=== PATIENT | female | born 1990 | race Caucasian/White ===

== ENCOUNTER 2016-09-04 19:11 | Emergency (ER) | payer MEDICAID, OTHER ==
[~2016-09-04] VITALS: Ht 170.2 cm; Wt 106.7 kg
[~2016-09-04 19:11] MED LIST: AC500T PO; CIPR-225 PO; CLC500CT PO; CLIN300C11 PO; DOXY-13 PO; DOXY100T2 PO; ERYT500T8 PO; ETON1VAG; FRS325T PO; HYDR-1231 PO; HYDR-3583 PO; IBP600T1 PO; IBP800T PO; NAPR-243 PO; NITR-65 PO; NITR100C3 PO; NUVARING; ONDA-42 SL; ONDAN4ODT PO; OXYC-12 PO; PARO10TA81 PO; PHEN37.53; PREN-115 PO; PREN1TAB39 PO; TRAM50TA2 PO
[2016-09-04] MEDS ORDERED: DESV50TA PO (19:49)
[2016-09-04] MEDS ORDERED: ONDANSETRON 4 MG/2 ML (SDV) Z0FRAN IVP ONE (20:30)
[2016-09-04] MEDS ORDERED: NS 100 ML (IVPB) BAG IV ONE (21:00)
[2016-09-04] MEDS ORDERED: IOHEXOL 350 MG/ML 100 ML (OMNIPAQUE 350) VIAL IV ONE (21:00)
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
[2016-09-04] MEDS ORDERED: TRAM50TA2 PO (22:18)
[2016-09-04 22:21] VITALS: BP 119/71
== END 2016-09-04 22:21 | disposition home or self-care (01) ==
LOC: EDUNIT# 19:11 → ER 19:13
DX: S93.402A Sprain of unspecified ligament of left ankle, initial encounter (principal); F17.210 Nicotine dependence, cigarettes, uncomplicated; V43.52XA Car driver injured in collision with other type car in traffic accident, initial encounter; Y92.414 Local residential or business street as the place of occurrence of the external cause; Y99.8 Other external cause status
CPT/HCPCS: 71260; 73610; 74177; 84703; 96374

== ENCOUNTER 2017-02-11 18:18 | Emergency (ER) | payer SELFPAY ==
[~2017-02-11] VITALS: Ht 167.6 cm; Wt 90.7 kg
[~2017-02-11 18:18] MED LIST changes: +DESV50TA PO
--- NOTE | 2017-02-11 19:12 | ED Lower Extremity ---
General Chief Complaint: Lower Extremity Stated Complaint: PT FELL X1 WEEK AND INJ KNEES Nursing Triage Note: c/o abrasions to both knees notes. Abrasions appears [place] with mild surround erythema. No streaking noted. Nursing Sepsis Screen: No Definite Risk History of Present Illness Time seen by provider: 18:55 Initial Comments Patient reports falling on a sidewalk, she tripped and landed on both knees with abrasions present. She has been cleaning it with peroxide and applying triple antibiotic ointment she has a history of MRSA. She denies any head injury or loss of consciousness at the time of fall in addition she reports she is approximately 4 days late on her menstrual cycle and had one positive test at home followed by 2 negative tests. Onset: last week Pain/Injury Location: bilateral knee Method of Injury: fell Modifying Factors: Improves With Pain Medication (Aleve one tablet twice a day. ), Improves With Rest Allergies and Home Medications Allergies Coded Allergies: amoxicillin (Unverified Allergy, Unknown, 09/04/16) cefaclor (Verified Allergy, Unknown, 02/17/16) codeine (Unverified Allergy, Unknown, 09/04/16) hydrocodone (Verified Allergy, Unknown, 02/17/16) penicillin G (Verified Allergy, Unknown, 01/10/07) Home Medications Desvenlafaxine Succinate 50 Mg Tab.er.24h, 50 MG PO DAILY, (Reported) Mupirocin Calcium 15 Gm Cream..g., 15 GM TP TID for 7 Days, #1 Ref 0 Applied to abrasions on both knees 3 times a day for 7 days. Prescribed by: ALMA SAINI on 02/11/173 Tramadol HCl 50 Mg Tablet, 50 MG PO TID, #12 Ref 0 Prescribed by: ALMA SAINI on 09/04/168 Constitutional: no symptoms reported, see HPI : No (negative urine hCG) Musculoskeletal: see HPI, joint pain (bilateral knees) All Other Systems Reviewed Negative Unless Noted: Yes Past Ucodnab-Wfwmnv-Mnovbw Hx Patient Social History Alcohol Use: Denies Use Recreational Drug Use: No Smoking Status: Current Everyday Smoker Type Used: Cigarettes Former Smoker/When Quit: Jan 24, 2013 Recent Foreign Travel: No Contact w/Someone Who Travel: No Recent Infectious Disease Expo: No Recent Hopitalizations: No Immunizations Up To Date Tetanus Booster (TDap): Unknown Date of Influenza Vaccine: Oct 21, 2011 Seasonal Allergies Seasonal Allergies: Yes Surgeries HX Surgeries: Yes Surgeries: Adenoidectomy, Tonsillectomy Respiratory Hx Respiratory Disorders: Yes (CHILDHOOD ASTHMA) Respiratory Disorders: Asthma Cardiovascular Hx Cardiac Disorders: No Neurological Hx Neurological Disorders: No Reproductive System Hx Reproductive Disorders: Yes Female Reproductive Disorders: Ovarian Cyst Genitourinary Hx Genitourinary Disorders: No Gastrointestinal Hx Gastrointestinal Disorders: No Musculoskeletal Hx Musculoskeletal Disorders: No Endocrine Hx Endocrine Disorders: No HEENT HX ENT Disorders: No Cancer Hx Cancer: No Psychosocial Hx Psychiatric Problems: Yes Behavioral Health Disorders: PTSD, Depression Integumentary HX Skin/Integumentary Disorder: No Blood Transfusions Hx Blood Disorders: No Adverse Reaction to a Blood Tr: No Reviewed Nursing Assessment Reviewed/Agree w Nursing PMH: Yes Family Medical History Significant Family History: Diabetes Physical Exam Vital Signs Vital Sign - Last 12Hours 02/11/17 02/11/17 18:41 19:15 Temp 97.5 Pulse 70 Resp 16 B/P (MAP) 116/79 Pulse Ox 98 Capillary Refill : Less Than 3 Seconds General Appearance: WD/WN, no apparent distress Neck: non-tender, full range of motion, supple, normal inspection Cardiovascular: normal peripheral pulses, regular rate, rhythm, no murmur Respiratory: chest non-tender, lungs clear, normal breath sounds Gastrointestinal: normal bowel sounds, non tender, soft Knees: bilateral knee normal range of motion, bilateral knee soft tissue tenderness, bilateral knee other (superficial abrasions with good granulation, no warmth, trace erythema. No effusion or induration. No active drainage.) Neurologic/Psychiatric: no motor/sensory deficits, alert, normal mood/affect, oriented x 3 Skin: warm/dry, other (abrasions bilateral knees, without signs of infection.) Progress/Results/Core Measures Results/Orders My Orders Orders - ALMA SAINI Urine Bedside (02/11/17 18:49) Urine Bedside (02/11/17 19:06) Vital Signs/I&O Vital Sign - Last 12Hours 02/11/17 02/11/17 18:41 19:15 Temp 97.5 97.5 Pulse 70 70 Resp 16 B/P (MAP) 116/79 Pulse Ox 98 98 Blood Pressure Mean: 91 Progress Note : Time: 19:05 Progress Note Bilateral knees cleaned with peroxide, triple antibiotic ointment and Band-Aid applied. Departure Impression Impression: Primary Impression: Abrasion of knee, bilateral Disposition: 01 HOME, SELF-CARE Condition: Stable Departure-Patient Inst. Decision time for Depature: 19:05 Referrals: NO,LOCAL PHYSICIAN (PCP/Family) Primary Care Physician Patient Instructions: Skin Abrasions (DC) Add. Discharge Instructions: Ice to knees 20 minutes every 2-3 hours. Continue to clean the abrasions with peroxide 3 times a day, and apply prescription antibiotic ointment. Return to emergency department or go to the [facility] for increased knee pain, redness, warmth, discolored drainage, temperature greater than 100 or new problems All discharge instructions reviewed with patient and/or family. Voiced understanding. Scripts Mupirocin Calcium (Mupirocin) 15 Gm Cream..g. 15 GM TP TID for 7 Days, #1 TUBE 0 Refills Applied to abrasions on both knees 3 times a day for 7 days. Prov: ALMA SAINI 02/11/17 ALMA SAINI Feb 11, 2017 19:12
[2017-02-11] MEDS ORDERED: MUPI15CR11 TP (19:13)
[2017-02-11 19:15] VITALS: BP 116/79
--- OUTSIDE RECORDS SUMMARY | 2017-02-19 02:05 | XMS REPORT ---
Author CHERY Espinosa [facility] eClinicalWorks Address Unknown Phone Unavailable Care Team Providers Care President And Chief Commercial Officer Name Role Phone CHERY CALDERON CP Unavailable Allergies No Known Allergies Problems Problem Type Condition Code Onset Dates Condition Status Problem Encounter for initial prescription of vaginal ring hormonal contraceptive Z30.015 Active Problem Family history of diabetes mellitus Z83.3 Active Problem Major depressive disorder with single episode, remission status unspecified F32.9 Active Problem Cellulitis of right upper extremity L03.113 Active Medications No Known Medications Results No Known Results Summary Purpose eClinicalWorks Submission
--- OUTSIDE RECORDS SUMMARY | 2017-02-19 02:05 | XMS REPORT ---
Author COCO Bansal [facility] eClinicalWorks Address Unknown Phone Unavailable Care Team Providers Care Die Cast Operator Name Role Phone COCO BURCH Unavailable Allergies No Known Allergies Problems Problem Type Condition Code Onset Dates Condition Status Problem Encounter for initial prescription of vaginal ring hormonal contraceptive Z30.015 Active Problem Family history of diabetes mellitus Z83.3 Active Problem Major depressive disorder with single episode, remission status unspecified F32.9 Active Problem Cellulitis of right upper extremity L03.113 Active Assessment Cellulitis of right upper extremity L03.113 Active Medications No Known Medications Results No Known Results Summary Purpose eClinicalWorks Submission
--- OUTSIDE RECORDS SUMMARY | 2017-02-19 02:05 | XMS REPORT ---
Author Author ENEDINA FIGUEROA [facility] Address [address] [place] [address] Care Team Providers Care Exhibitions And Collections Manager Name Role Phone ENEDINA FIGUEROA Unavailable PROBLEMS Type Condition ICD9-CM Code [id number] Code Onset Dates Condition Status SNOMED Code Problem Mild persistent asthma without complication J45.30 Active 996376166 Problem Major depressive disorder with single episode, remission status unspecified F32.9 Active 07127948 Problem Cellulitis of right upper extremity L03.113 Active 834326739 Assessment Mild persistent asthma without complication J45.30 Jun, Active 301839809 Problem Encounter for initial prescription of vaginal ring hormonal contraceptive Z30.015 Active Problem Family history of diabetes mellitus Z83.3 Active 309749209 ALLERGIES Substance Reaction Event Type Date Status Penicillin G Potassium Unknown Drug Allergy Jun, Active Codeine Sulfate Unknown Drug Allergy Jun, Active Cefaclor Unknown Drug Allergy Jun, Active Amoxicillin Unknown Drug Allergy Jun, Active SOCIAL HISTORY No smoking Hx information available PLAN OF CARE VITAL SIGNS Height 66 in 2016-06-30 Weight 230 lbs 2016-06-30 Heart Rate 72 bpm 2016-06-30 Respiratory Rate 22 2016-06-30 BMI 37.12 kg/m2 2016-06-30 Blood pressure systolic 100 mmHg 2016-06-30 Blood pressure diastolic 60 mmHg 2016-06-30 MEDICATIONS Medication Instructions Dosage Frequency Start Date End Date Duration Status Magnesium 250 MG Orally Once a day 1 tablet with a meal 24h Active NuvaRing 0.12-0.015 MG/24HR Vaginal every 3 weeks 1 ring Active Potassium Chloride CR 550mg by oral route Once a day 1 capsule 24h Active Singulair 10 mg Orally Once a day 1 tablet in the evening 24h Jun, Active Fish Oil 1000 MG Orally Once a day 1 capsule 24h Active Proventil HFA 108 (90 Base) MCG/ACT Inhalation every 4 hrs 2 puffs as needed 4h Jun, Active RESULTS No Results PROCEDURES Procedure Date Ordered Related Diagnosis Body Site Office Visit, Est Pt., Level 3 Jun 30, 2016 IMMUNIZATIONS No Known Immunizations
--- OUTSIDE RECORDS SUMMARY | 2017-02-19 02:05 | XMS REPORT ---
Author Author COCO BURCH [facility] eClinicalWorks Address Unknown Phone Unavailable Care Team Providers Care Industrial Retrofit Designer Name Role Phone COCO BURCH Unavailable Allergies [...]
--- OUTSIDE RECORDS SUMMARY | 2017-02-19 02:05 | XMS REPORT ---
Author Author ENEDINA FIGUEROA [facility] Address [address] [place] [address] Care Team Providers Care Slide Developer Name Role Phone ENEDINA FIGUEROA Unavailable PROBLEMS Type Condition ICD9-CM Code [id number] Code Onset Dates Condition Status SNOMED Code Problem Mild persistent asthma without complication J45.30 Active 508549127 Problem Major depressive disorder with single episode, remission status unspecified F32.9 Active 34123937 Problem Cellulitis of right upper extremity L03.113 Active 167283994 Assessment Mild persistent asthma without complication J45.30 Jun, Active 328604859 Problem Encounter for initial prescription of vaginal ring hormonal contraceptive Z30.015 Active Problem Family history of diabetes mellitus Z83.3 Active 951774842 ALLERGIES Substance Reaction Event Type Date Status Penicillin G Potassium Unknown Drug Allergy Jun, Active Codeine Sulfate Unknown Drug Allergy Jun, Active Cefaclor Unknown Drug Allergy Jun, Active Amoxicillin Unknown Drug Allergy Jun, Active SOCIAL HISTORY No smoking Hx information available PLAN OF CARE VITAL SIGNS Height 66 in 2016-07-07 Weight 233.8 lbs 2016-07-07 Heart Rate 80 bpm 2016-07-07 Respiratory Rate 22 2016-07-07 BMI 37.73 kg/m2 2016-07-07 Blood pressure systolic 110 mmHg 2016-07-07 Blood pressure diastolic 70 mmHg 2016-07-07 MEDICATIONS Medication Instructions Dosage Frequency Start Date End Date Duration Status NuvaRing 0.12-0.015 MG/24HR Vaginal every 3 weeks 1 ring Active Potassium Chloride CR 550mg by oral route Once a day 1 capsule 24h Active Magnesium 250 MG Orally Once a day 1 tablet with a meal 24h Active Pristiq 50 mg Orally Once a day 1 tablet 24h Active Fish Oil 1000 MG Orally Once a day 1 capsule 24h Active Proventil HFA 108 (90 Base) MCG/ACT Inhalation every 4 hrs 2 puffs as needed 4h Jun, Active Bactroban 2 % nasal 2 times a day 1 application to affected area 12h JunJun, 10 days Active Zithromax Z-Herminio 250 MG Orally Once a day 2 tablets on the first day, then 1 tablet daily for 4 days 24h Jun, Jun, 5 day(s) Active Promethazine-Codeine 6.25-10 MG/5ML Orally every 6 hrs 5 ml as needed 6h Jun, Active Singulair 10 mg Orally Once a day 1 tablet in the evening 24h Jun, Active RESULTS No Results PROCEDURES Procedure Date Ordered Related Diagnosis Body Site Office Visit, Est Pt., Level 3 Jul 07, 2016 IMMUNIZATIONS No Known Immunizations
--- OUTSIDE RECORDS SUMMARY | 2017-02-19 02:06 | XMS REPORT ---
Author Author COCO BURCH Organization [facility] Address [address] [place] [address] Care Team Providers Care Family Protection Specialist Name Role Phone COCO BURCH Unavailable PROBLEMS Type Condition ICD9-CM Code ONA59-UM Code Onset Dates Condition Status SNOMED Code Problem Mild persistent asthma without complication J45.30 Active 775246871 Problem Major depressive disorder with single episode, remission status unspecified F32.9 Active 57762778 Problem Cellulitis of right upper extremity L03.113 Active 760226841 Problem Encounter for initial prescription of vaginal ring hormonal contraceptive Z30.015 Active Problem Family history of diabetes mellitus Z83.3 Active 652167969 ALLERGIES Unknown Allergies SOCIAL HISTORY No smoking Hx information available PLAN OF CARE VITAL SIGNS MEDICATIONS Medication Instructions Dosage Frequency Start Date End Date Duration Status Bactroban 2 % nasal 2 times a day 1 application to affected area 12h JunJun, 10 days Active RESULTS No Results PROCEDURES No Known procedures IMMUNIZATIONS No Known Immunizations
--- OUTSIDE RECORDS SUMMARY | 2017-02-19 02:06 | XMS REPORT ---
Author COCO Bansal [facility] eClinicalWorks Address Unknown Phone Unavailable Care Team Providers Care Range Conservationist Name Role Phone COCO BURCH CP Unavailable Allergies, Adverse Reactions, Alerts Substance Reaction Event Type Penicillin G Potassium Info Not Available Drug Allergy Codeine Sulfate Info Not Available Drug Allergy Cefaclor Info Not Available Drug Allergy Amoxicillin Info Not Available Drug Allergy Problems Problem Type Condition Code Onset Dates Condition Status Assessment Cellulitis of right upper extremity L03.113 Active Assessment Encounter for immunization Z23 Active Problem Encounter for initial prescription of vaginal ring hormonal contraceptive Z30.015 Active Problem Family history of diabetes mellitus Z83.3 Active Problem Major depressive disorder with single episode, remission status unspecified F32.9 Active Assessment Major depressive disorder with single episode, remission status unspecified F32.9 Active Assessment Family history of diabetes mellitus Z83.3 Active Problem Cellulitis of right upper extremity L03.113 Active Assessment Encounter for initial prescription of vaginal ring hormonal contraceptive Z30.015 Active Medications Medication Code System Code Instructions Start Date End Date Status Dosage Pristiq [facility] [address]-99 50 mg Orally Once a day 1 tablet NuvaRing [facility] [address]-57 0.12-0.015 MG/24HR Vaginal every 3 weeks 1 ring Procedures Procedure Coding System Code Date LAB NOT BILLED BY [facility] CPT-4 NOBLL May 21, 2016 MR-STAPH, DNA, AMP PROBE CPT-4 03613 May 21, 2016 URINE TEST CPT-4 69009 May 21, 2016 VENIPUNCT, ROUTINE* CPT-4 03617 May 21, 2016 Office Visit, Est Pt., Level 4 CPT-4 88022 May 21, 2016 SINGLE IMMUNIZATION ADMIN CPT-4 98730 May 21, 2016 FLUARIX QUAD P-FREE 3 AND UP .50 2015 CPT-4 67647 May 21, 2016 Vital Signs Date/Time: May 21, 2016 Cardiac Monitoring Heart Rate 78 bpm Weight 225 lbs Height 66 in BMI 36.31 Index Blood Pressure Diastolic 72 mmHg Blood Pressure Systolic 102 mmHg Results Name Result Date Reference Range Unit Abnormality Flag TSH ----TSH 0.906 09391853 0.450-4.500 uIU/mL CBC ----Basos 1 18070856 % ----MCV 90 17621877 79-97 fL ----Hematocrit 38.1 48917614 34.0-46.6 % ----Eos 5 17933254 % ----MCHC 33.6 32340680 31.5-35.7 g/dL ----Monocytes 6 13009486 % ----MCH 30.1 16466633 26.6-33.0 pg ----Lymphs 37 05494549 % ----Eos (Absolute) 0.3 63951092 0.0-0.4 x10E3/uL ----WBC 6.4 90880095 3.4-10.8 x10E3/uL ----Monocytes(Absolute) 0.4 59342254 0.1-0.9 x10E3/uL ----Lymphs (Absolute) 2.3 52470170 0.7-3.1 x10E3/uL ----Hemoglobin 12.8 97426339 11.1-15.9 g/dL ----Neutrophils (Absolute) 3.3 06275297 1.4-7.0 x10E3/uL ----RBC 4.25 70104735 3.77-5.28 x10E6/uL ----Immature Grans (Abs) 0.0 63188937 0.0-0.1 x10E3/uL ----Immature Granulocytes 0 95221650 % ----Neutrophils 51 67278852 % ----Baso (Absolute) 0.0 57211467 0.0-0.2 x10E3/uL ----RDW 13.6 23876026 12.3-15.4 % ----Platelets 205 94885366 150-379 x10E3/uL TEST, URINE (IN HOUSE) ----RESULTS Negative [id number] ----Lot # [id number] ----Control + [id number] ----Exp date [id number] ROUTINE VENIPUNCTURE CULTURE, MRSA COLONIZATION SCREENING ----Request Problem [employer] [employer] [facility] [id number] ----MRSA by [facility] [id number] Written Authorization LIPID PANEL ----LDL Cholesterol Calc 138 69883541 0-99 mg/dL H ----VLDL Cholesterol Be 34 17888173 5-40 mg/dL ----HDL Cholesterol 31 08108556 >39 mg/dL L ----Triglycerides 168 73360094 0-149 mg/dL H ----Cholesterol, Total 203 33827737 100-199 mg/dL H CMP ----Creatinine, Serum 0.77 22818837 0.57-1.00 mg/dL ----BUN 10 51432319 6-20 mg/dL ----eGFR If Africn Am 122 92273542 >59 mL/min/1.73 ----eGFR If NonAfricn Am 105 42715314 >59 mL/min/1.73 ----Sodium, Serum 140 75660850 136-144 mmol/L ----BUN/Creatinine Ratio 13 34879611 8-20 ----Chloride, Serum 105 95118527 97-106 mmol/L ----Potassium, Serum 4.3 99249418 3.5-5.2 mmol/L ----Carbon Dioxide, Total 21 44200554 18-29 mmol/L ----Protein, Total, Serum 6.4 72040668 6.0-8.5 g/dL ----Calcium, Serum 8.9 19572841 8.7-10.2 mg/dL ----Globulin, Total 2.3 67017812 1.5-4.5 g/dL ----Albumin, Serum 4.1 26207574 3.5-5.5 g/dL ----Bilirubin, Total 0.5 08359044 0.0-1.2 mg/dL ----Glucose, Serum 92 65682049 65-99 mg/dL ----A/G Ratio 1.8 32059922 1.1-2.5 ----ALT (SGPT) 11 79210612 0-32 IU/L ----Alkaline Phosphatase, S 53 87034619 39-117 IU/L ----AST (SGOT) 7 29664616 0-40 IU/L Immunizations Vaccine Administration Date FLUARIX QUAD P-FREE 3 AND UP .50 2015May 21, 2016 Summary Purpose eClinicalWorks Submission
--- OUTSIDE RECORDS SUMMARY | 2017-02-19 02:06 | XMS REPORT ---
Author COCO Bansal [facility] eClinicalWorks Address Unknown Phone Unavailable Care Team Providers Care Etiologist Name Role Phone COCO BURCH CP Unavailable Allergies, Adverse Reactions, Alerts Substance Reaction Event Type Penicillin G Potassium Info Not Available Drug Allergy Codeine Sulfate Info Not Available Drug Allergy Cefaclor Info Not Available Drug Allergy Amoxicillin Info Not Available Drug Allergy Problems No Known Problems Medications Medication Code System Code Instructions Start Date End Date Status Dosage NuvaRing [facility] [address]-26 0.12-0.015 MG/24HR Vaginal 1 ring Results No Known Results Summary Purpose eClinicalWorks Submission
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
== END 2017-02-11 19:15 | disposition home or self-care (01) ==
LOC: EDUNIT# 18:18 → ER 18:21
DX: S80.211A Abrasion, right knee, initial encounter (principal); S80.212A Abrasion, left knee, initial encounter; F43.10 Post-traumatic stress disorder, unspecified; F32.9 Major depressive disorder, single episode, unspecified; J45.909 Unspecified asthma, uncomplicated; F17.210 Nicotine dependence, cigarettes, uncomplicated; Z90.89 Acquired absence of other organs; Z86.14 Personal history of Methicillin resistant Staphylococcus aureus infection; W18.30XA Fall on same level, unspecified, initial encounter; Y92.480 Sidewalk as the place of occurrence of the external cause
CPT/HCPCS: 84703; 99283

== ENCOUNTER 2017-02-14 18:05 | Emergency (ER) | payer SELFPAY ==
[~2017-02-14] VITALS: Ht 167.6 cm; Wt 104.4 kg
[~2017-02-14 18:05] MED LIST changes: +MUPI15CR11 TP
--- NOTE | 2017-02-14 19:58 | ED General ---
General Chief Complaint: Skin/Wound Problems Stated Complaint: FEVER/BILAT KNEE WOUNDS Nursing Triage Note: patient reports falling and having been seen and treated here on the the for abrasions on knees. patient reports has been putting the antibiotic cream to areas but developed a fever today and the discharge papers state to come back if fever developed Nursing Sepsis Screen: No Definite Risk Source of Information: Patient Exam Limitations: No Limitations History of Present Illness Time Seen by Provider: 19:35 Initial Comments Here with report of not eeling well. She was seen and treated a few days ago for bilateral knee abrasions and started on topical antibiotic. She reports that she had a fever today and came back per discharge instructions. There is not any increasing redness to the wounds are in fact they appear to be healing. She states that she has been using her antibiotic ointment. She reports nausea today and just not feeling well. Timing/Duration: 12 Hours Severity: Mild Associated Systoms: Fever/Chills, Nausea/Vomiting Allergies and Home Medications Allergies Coded Allergies: amoxicillin (Unverified Allergy, Unknown, 09/04/16) cefaclor (Verified Allergy, Unknown, 02/17/16) codeine (Unverified Allergy, Unknown, 09/04/16) hydrocodone (Verified Allergy, Unknown, 02/17/16) penicillin G (Verified Allergy, Unknown, 01/10/07) Home Medications Desvenlafaxine Succinate 50 Mg Tab.er.24h, 50 MG PO DAILY, (Reported) Mupirocin Calcium 15 Gm Cream..g., 15 GM TP TID for 7 Days, #1 Ref 0 Applied to abrasions on both knees 3 times a day for 7 days. Prescribed by: ALMA SAINI on 02/11/173 Tramadol HCl 50 Mg Tablet, 50 MG PO TID, #12 Ref 0 Prescribed by: ALMA SAINI on 09/04/168 Constitutional: see HPI, chills, fever EENTM: no symptoms reported Respiratory: no symptoms reported Cardiovascular: no symptoms reported Gastrointestinal: see HPI, nausea Genitourinary: no symptoms reported Musculoskeletal: no symptoms reported All Other Systems Reviewed Negative Unless Noted: Yes Past Vjsjivl-Vckzfq-Javfpa Hx Patient Social History Alcohol Use: Denies Use Recreational Drug Use: No Type Used: Cigarettes Former Smoker/When Quit: Jan 24, 2013 Recent Foreign Travel: No Contact w/Someone Who Travel: No Recent Infectious Disease Expo: No Recent Hopitalizations: No Immunizations Up To Date Tetanus Booster (TDap): Unknown Date of Influenza Vaccine: Oct 21, 2011 Seasonal Allergies Seasonal Allergies: Yes Surgeries HX Surgeries: Yes Surgeries: Adenoidectomy, Tonsillectomy Respiratory Hx Respiratory Disorders: Yes (CHILDHOOD ASTHMA) Respiratory Disorders: Asthma Cardiovascular Hx Cardiac Disorders: No Neurological Hx Neurological Disorders: No Reproductive System Hx Reproductive Disorders: Yes Female Reproductive Disorders: Ovarian Cyst Genitourinary Hx Genitourinary Disorders: No Gastrointestinal Hx Gastrointestinal Disorders: No Musculoskeletal Hx Musculoskeletal Disorders: No Endocrine Hx Endocrine Disorders: No HEENT HX ENT Disorders: No Cancer Hx Cancer: No Psychosocial Hx Psychiatric Problems: Yes Behavioral Health Disorders: PTSD, Depression Integumentary HX Skin/Integumentary Disorder: No Blood Transfusions Hx Blood Disorders: No Adverse Reaction to a Blood Tr: No Reviewed Nursing Assessment Reviewed/Agree w Nursing PMH: Yes Family Medical History Significant Family History: Diabetes Physical Exam Vital Signs Vital Sign - Last 12Hours 02/14/17 19:22 Temp 98.4 Pulse 74 Resp 18 B/P (MAP) 112/84 Pulse Ox 97 Capillary Refill : Less Than 3 Seconds General Appearance: No Apparent Distress, WD/WN HEENT: PERRL/EOMI, TMs Normal, Pharynx Normal Neck: Non Tender, Supple Respiratory: Lungs Clear, Normal Breath Sounds Cardiovascular: Regular Rate, Rhythm, No Murmur Gastrointestinal: Non Tender, Soft Back: Normal Inspection, No CVA Tenderness, No Vertebral Tenderness Extremity: Normal Range of Motion, Non Tender Neurologic/Psychiatric: Alert, Oriented x3 Skin: Warm/Dry, Other (small abrasions noted to the anterior knees bilaterally with healing apparent. No significant surrounding erythema.) Progress/Results/Core Measures Results/Orders Vital Signs/I&O Vital Sign - Last 12Hours 02/14/17 19:22 Temp 98.4 Pulse 74 Resp 18 B/P (MAP) 112/84 Pulse Ox 97 Blood Pressure Mean: 93 Progress Note : Progress Note Seen and evaluated. No acute findings. Discharged home with return precautions. Patient verbalize understanding instructions and agreement with plan. Departure Impression Impression: Primary Impression: Abrasion of knee, bilateral Disposition: 01 HOME, SELF-CARE Condition: Stable Departure-Patient Inst. Decision time for Depature: 19:57 Referrals: NO,LOCAL PHYSICIAN (PCP/Family) Primary Care Physician Patient Instructions: Skin Abrasions (DC) Add. Discharge Instructions: All discharge instructions reviewed with patient and/or family. Voiced understanding. Continue to use antibiotic ointment over knees bilaterally. Follow-up with your doctor on Thursday for recheck and further evaluation. Return for worse pain , persistent fever, breathing problems or other concerns as needed. IRVING STERLING MD Feb 14, 2017 19:58
[2017-02-14 20:04] VITALS: BP 112/84
== END 2017-02-14 20:03 | disposition home or self-care (01) ==
LOC: EDUNIT# 18:05 → ER 18:07
DX: S80.211D Abrasion, right knee, subsequent encounter (principal); S80.212D Abrasion, left knee, subsequent encounter; J45.909 Unspecified asthma, uncomplicated; F43.10 Post-traumatic stress disorder, unspecified; F32.9 Major depressive disorder, single episode, unspecified; Z90.89 Acquired absence of other organs; Z87.891 Personal history of nicotine dependence; W19.XXXD Unspecified fall, subsequent encounter
CPT/HCPCS: 99282

== ENCOUNTER 2017-03-01 13:53 | Emergency (ER) | payer SELFPAY ==
[~2017-03-01] VITALS: Ht 167.6 cm; Wt 104.3 kg
[2017-03-01] MEDS ORDERED: IBUPROFEN 800 MG (MOTRIN) TAB PO STA (16:11)
--- NOTE | 2017-03-01 16:11 | ED EENT ---
History of Present Illness General Chief Complaint: Head/Cervical Problems Stated Complaint: R SIDE FACIAL SWELLING Nursing Triage Note: PT HERE WITH C/O "LUMP" ON NECK AND FEVER. History of Present Illness Time seen by provider: 16:05 Initial Comments Patient reports noticing an enlarged lymph node in her right neck yesterday she reports mild right ear pain. No other complaints she has not checked her temperature at home but felt that she may have a fever. No medications prior to arrival. She worked until 2200 last evening went home went to bed and didn't wake up until 1300 today Timing/Duration: abrupt Severity: mild Location: throat Prearrival Treatment: no prearrival treatment Modifying Factors: Improves With Rest Associated Symptoms: denies symptoms Allergies and Home Medications Allergies Coded Allergies: amoxicillin (Unverified Allergy, Unknown, 09/04/16) cefaclor (Verified Allergy, Unknown, 02/17/16) codeine (Unverified Allergy, Unknown, 09/04/16) hydrocodone (Verified Allergy, Unknown, 02/17/16) penicillin G (Verified Allergy, Unknown, 01/10/07) Home Medications Desvenlafaxine Succinate 50 Mg Tab.er.24h, 50 MG PO DAILY, (Reported) Mupirocin Calcium 15 Gm Cream..g., 15 GM TP TID for 7 Days, #1 Ref 0 Applied to abrasions on both knees 3 times a day for 7 days. Prescribed by: ALMA SAINI on 02/11/171912 Tramadol HCl 50 Mg Tablet, 50 MG PO TID, #12 Ref 0 Prescribed by: ALMA SAINI on 09/04/168 Review of Systems Constitutional: no symptoms reported, see HPI Hematologic/Lymphatic: See HPI, Swollen Glands (right neck) Past Trfzzsn-Sipomf-Iqnwzq Hx Patient Social History Alcohol Use: Denies Use Recreational Drug Use: No Smoking Status: Current Everyday Smoker Type Used: Cigarettes Former Smoker/When Quit: Jan 24, 2013 Recent Foreign Travel: No Contact w/Someone Who Travel: No Recent Infectious Disease Expo: No Recent Hopitalizations: No Immunizations Up To Date Tetanus Booster (TDap): Unknown Date of Influenza Vaccine: Oct 21, 2011 Seasonal Allergies Seasonal Allergies: Yes Surgeries HX Surgeries: Yes Surgeries: Adenoidectomy, Tonsillectomy Respiratory Hx Respiratory Disorders: Yes (CHILDHOOD ASTHMA) Respiratory Disorders: Asthma Cardiovascular Hx Cardiac Disorders: No Neurological Hx Neurological Disorders: No Reproductive System Hx Reproductive Disorders: Yes Female Reproductive Disorders: Ovarian Cyst Genitourinary Hx Genitourinary Disorders: No Gastrointestinal Hx Gastrointestinal Disorders: No Musculoskeletal Hx Musculoskeletal Disorders: No Endocrine Hx Endocrine Disorders: No HEENT HX ENT Disorders: No Cancer Hx Cancer: No Psychosocial Hx Psychiatric Problems: Yes Behavioral Health Disorders: PTSD, Depression Integumentary HX Skin/Integumentary Disorder: No Blood Transfusions Hx Blood Disorders: No Adverse Reaction to a Blood Tr: No Reviewed Nursing Assessment Reviewed/Agree w Nursing PMH: Yes Family Medical History Significant Family History: Diabetes Physical Exam Vital Signs Vital Sign - Last 12Hours 03/01/17 14:40 Temp 97.4 Pulse 85 Resp 18 B/P (MAP) 104/73 Pulse Ox 99 O2 Delivery Room Air General Appearance: WD/WN, no apparent distress Eyes: bilateral eye EOMI, bilateral eye normal inspection Ears: bilateral ear TM normal, bilateral ear auricle normal, bilateral ear canal normal Nose: normal inspection, No active bleeding, No discharge Mouth/Throat: normal mouth inspection, pharynx normal, No dental tenderness Neck: full range of motion, supple, normal inspection, lymphadenopathy (R) ( anterior cervical node palpable 2+, mobile, TTP) Cardiovascular: normal peripheral pulses, regular rate, rhythm Respiratory: chest non-tender, lungs clear, normal breath sounds Skin: normal color, warm/dry, other (patient does have small acne breakout to right cheek) Progress/Results/Core Measures Results/Orders My Orders Orders - ALMA SAINI Ibuprofen Tablet (Motrin Tablet) (03/01/17 16:11) Vital Signs/I&O Vital Sign - Last 12Hours 03/01/17 14:40 Temp 97.4 Pulse 85 Resp 18 B/P (MAP) 104/73 Pulse Ox 99 O2 Delivery Room Air Blood Pressure Mean: 83 Progress Note : Time: 16:05 Progress Note Discussed with patient the acne breakout could be causing the lymph node to be enlarged. Patient education provided to watch the notify remains enlarged follow -up with primary care provider at this time it is mobile and does not warrant any further testing. Departure Impression Impression: Primary Impression: Lymph node enlargement Disposition: 01 HOME, SELF-CARE Condition: Stable Departure-Patient Inst. Decision time for Depature: 16:15 Referrals: NO,LOCAL PHYSICIAN (PCP/Family) Primary Care Physician Patient Instructions: LYMPH NODE SWELLING Add. Discharge Instructions: Warm moist compresses to right neck every 2-3 hours. Ibuprofen 600 mg every 8 hours. Follow-up with primary care provider if lymph node remains enlarged. Return to emergency department for temperature greater than 101. All discharge instructions reviewed with patient and/or family. Voiced understanding. ALMA SAINI Mar 01, 2017 16:11
[2017-03-01 16:21] VITALS: BP 104/73
== END 2017-03-01 16:20 | disposition home or self-care (01) ==
LOC: EDUNIT# 13:53 → ER 13:54
DX: R22.1 Localized swelling, mass and lump, neck (principal); F32.9 Major depressive disorder, single episode, unspecified; F43.10 Post-traumatic stress disorder, unspecified; J45.909 Unspecified asthma, uncomplicated; F17.210 Nicotine dependence, cigarettes, uncomplicated; Z87.42 Personal history of other diseases of the female genital tract; Z90.89 Acquired absence of other organs
CPT/HCPCS: 99283